=== PATIENT | female | born 1975 | race Caucasian/White ===

== ENCOUNTER 2017-08-23 09:39 | Day surgery (SDC) | payer OTHER ==
[~2017-08-23 09:39] MED LIST: CEFAZOLIN 2 GM/50 ML (PMX) 50 ML IVPB; DEXAMETHASONE 4 MG/ML 1 ML INJ; LIDOCAINE 2% (SDV) 5 ML INJ; ONDANSETRON 4 MG INJ; SOD CHLORIDE 0.9% 1,000 ML IV
[2017-08-23 10:34] LABS: ADD MAN DIFF? NO
[2017-08-23 10:36] LABS: BASOPHILS % 0.2 % (0.0-2.0); EOSINOPHILS # 0.2 10^3/ul (0.0-0.5); EOSINOPHILS % 2.3 % (0.0-7.0); HEMATOCRIT 34.9 % (37.0-47.0); HEMOGLOBIN 11.8 g/dl (12.0-16.0); LYMPHOCYTES # 1.8 10^3/ul (0.8-2.9); LYMPHOCYTES % 21.3 % (15.0-51.0); MEAN CORPUSCULAR HEMOGLOBIN 28.6 pg (29.0-33.0); MEAN CORPUSCULAR HGB CONC 33.8 g/dl (32.0-37.0); MEAN CORPUSCULAR VOLUME 84.7 fl (82.0-101.0); MEAN PLATELET VOLUME 10.8 fl (7.4-10.4); MONOCYTE # 0.5 10^3/ul (0.3-0.9); MONOCYTES % 6.1 % (0.0-11.0); NEUTROPHIL # 5.8 10^3/ul (1.6-7.5); NEUTROPHILS % 69.5 % (39.0-77.0); PLATELET COUNT 222 10^3/UL (140-415); RED BLOOD COUNT 4.12 10^6/ul (4.20-5.40)
[2017-08-23 10:36] LABS: WHITE BLOOD COUNT 8.4 10^3/ul (4.8-10.8)
[2017-08-23 10:54] LABS: ALANINE AMINOTRANSFERASE 22 IU/L (13-69); ALBUMIN 3.9 g/dl (3.3-4.9); ALBUMIN/GLOBULIN RATIO 1.18; ALKALINE PHOSPHATASE 59 IU/L (42-121); ANION GAP 16 (8-16); ASPARTATE AMINO TRANSFERASE 23 IU/L (15-46); BILIRUBIN,INDIRECT 0.5 mg/dl (0-1.1); BILIRUBIN,TOTAL 0.5 mg/dl (0.2-1.3); CARBON DIOXIDE 24 mmol/L (21-31); CHLORIDE 106 mmol/L (97-110); GLUCOSE 109 mg/dl (70-220); TOTAL PROTEIN 7.2 g/dl (6.1-8.1)
[2017-08-23 10:55] LABS: BLOOD UREA NITROGEN 12 mg/dl (7-20); CREATININE 0.65 mg/dl (0.44-1.00); POTASSIUM 3.9 mmol/L (3.5-5.1); SODIUM 142 mmol/L (135-144)
[2017-08-23 11:27] LABS: INR 0.92; PROTIME 12.4 Sec (11.9-14.9)
[2017-08-23 11:28] LABS: PARTIAL THROMBOPLASTIN TIME 31.6 Sec (25.0-35.0)
[2017-08-23] MEDS ORDERED: PROPOFOL 100 ML (13:42)
[2017-08-23] MEDS ORDERED: ALBUTEROL 0.083% (NEB) 2.5 MG/3 ML AMP HHN (14:00)
[2017-08-23] MEDS ORDERED: MIDAZOLAM 1 MG/ML 2 ML INJ IV (14:00)
[2017-08-23] MEDS ORDERED: LABETALOL HCL 20MG INJ IV (14:00)
[2017-08-23] MEDS ORDERED: KETOROLAC 30 MG INJ IV (14:00)
[2017-08-23] MEDS ORDERED: METOCLOPRAMIDE 10 MG INJ IV (14:00)
[2017-08-23] MEDS ORDERED: MEPERIDINE 25 MG INJ IV (14:00)
[2017-08-23] MEDS ORDERED: FENTAnyl 50 MCG/ML VIAL IV ×3 (14:00)
[2017-08-23] MEDS ORDERED: EPHEDrine SULFATE 50 MG/5 ML SYG IV (14:00)
[2017-08-23] MEDS ORDERED: ONDANSETRON 4 MG INJ IV (14:00)
[2017-08-23] MEDS ORDERED: HYDROmorphONE (0.2 MG/ML) 10ML SYG IV ×3 (14:00)
[2017-08-23] MEDS ORDERED: hydrALAzine 20 MG INJ IV (14:00)
[2017-08-23] MEDS ORDERED: DIPHENHYDRAMINE 50 MG INJ IV (14:00)
[2017-08-23] MEDS ORDERED: OXYCODONE/ACETAMINOPHEN (5/325) TAB PO ×2 (14:00)
[2017-08-23] MEDS: BUPIVACAINE 0.5%/EPI (SDV) 30 ML INJ (14:12)
[2017-08-23] MEDS ORDERED: CEFAZOLIN 1 GM INJ (14:26)
[2017-08-23] MEDS ORDERED: SUGAMMADEX SODIUM 200 MG/2 ML VIAL IV (14:26)
== END 2017-08-23 16:40 | disposition home or self-care (01) ==
LOC: SDS 09:39
DX: D17.1 Benign lipomatous neoplasm of skin and subcutaneous tissue of trunk (principal); I10 Essential (primary) hypertension; E66.9 Obesity, unspecified; Z68.34 Body mass index [BMI] 34.0-34.9, adult
CPT/HCPCS: 11406; 80053; 85025; 85610; 85730; 88304